=== PATIENT | female | born 1940 | race African-American/Black ===

== ENCOUNTER 2021-05-23 19:11 | Emergency (ER) | payer MEDICARE ==
[~2021-05-23] VITALS: Ht 157.5 cm; Wt 56.2 kg
== END 2021-05-23 22:24 | disposition home or self-care (01) ==
LOC: ER 19:23
DX: Z43.1 Encounter for attention to gastrostomy (principal); F03.90 Unspecified dementia, unspecified severity, without behavioral disturbance, psychotic disturbance, mood disturbance, and anxiety; I10 Essential (primary) hypertension; E46 Unspecified protein-calorie malnutrition

== ENCOUNTER 2021-06-12 11:19 | Emergency (ER) | payer MEDICARE ==
[~2021-06-12] VITALS: Ht 157.5 cm; Wt 56.2 kg
[2021-06-12] MEDS ORDERED: SODIUM CHLORIDE 0.9% 500ML 500 ML IV ONE (11:45)
[2021-06-12 11:59] LABS: BASOPHILS # (AUTO) 0.1 (0.0-0.1); BASOPHILS % 1.1 % (0.0-1.0); EOSINOPHILS % 0.7 % (0.0-6.0); HEMOGLOBIN 11.8 g/dL (12.0-16.0); LYMPHOCYTES # (AUTO) 1.4 (1.0-3.2); LYMPHOCYTES % 24.1 % (18.0-39.1); MEAN CORPUSCULAR HEMOGLOBIN 26.6 pg (28-32); MEAN CORPUSCULAR HGB CONC 30.3 g/dL (31-35); MEAN CORPUSCULAR VOLUME 87.8 fL (81-99); MONOCYTES # (AUTO) 0.5 (0.2-0.8); NEUTROPHILS # (AUTO) 3.7 (2.1-6.9); NEUTROPHILS % 65.6 % (38.7-80.0); PLATELET COUNT 211 x10e3/uL (140-360); RED BLOOD COUNT 4.44 x10e6/uL (3.6-5.1); RED CELL DISTRIBUTION WIDTH 15.8 % (11.7-14.4)
[2021-06-12 12:12] LABS: CLARITY,URINE CLOUDY (CLEAR); COLOR,URINE YELLOW (YELLOW); KETONES,URINE NEGATIVE (NEGATIVE); LEUKOCYTE ESTERASE ,URINE TRACE (NEGATIVE); NITRITE,URINE NEGATIVE (NEGATIVE); PROTEIN,URINE DIPSTICK NEGATIVE (NEGATIVE); URINE UROBILINOGEN 0.2 mg/dL (0.2 - 1)
[2021-06-12 12:14] LABS: BACTERIA,URINE MANY /HPF; EPITHELIAL CELLS,URINE MODERATE /LPF
[2021-06-12 12:15] LABS: AMORPHOUS SEDIMENT,URINE MANY (FEW); WBC,URINE (MAN) 21-50 /HPF (0-5)
[2021-06-12] MEDS ORDERED: ONDANSETRON HCL INJ 2MG/ML 2ML 2 MG/ML VIAL IV ONE (12:30)
[2021-06-12 13:23] LABS: INR 0.9; PROTHROMBIN TIME 12.9 seconds (11.9-14.5)
[2021-06-12 13:24] LABS: PARTIAL THROMBOPLASTIN TIME 24.1 seconds (23.8-35.5)
[2021-06-12 13:59] LABS: ALBUMIN 3.3 g/dL (3.5-5.0); ALBUMIN/GLOBULIN RATIO 1.3 (0.8-2.0); ANION GAP 15.2 mmol/L (8-16); CREATININE, SERUM 0.84 mg/dL (0.57-1.11); MAGNESIUM 1.9 MG/DL (1.3-2.1); POTASSIUM 4.2 mmol/L (3.5-5.1)
[2021-06-12 14:11] LABS: CREATINE KINASE MB 1.2 ng/mL (0-5.0)
[2021-06-12] MEDS ORDERED: IOPAMIDOL 370 MG/ML 200 ML INFUS..BTL INJ ONE (14:43)
[2021-06-12] MEDS ORDERED: SODIUM CHLORIDE 0.9% 50ML 50 ML ONE (14:43)
[2021-06-12] MEDS ORDERED: LIDOCAINE HCL 1% 2 ML AMP ONE (15:32)
[2021-06-12] MEDS ORDERED: CEFTRIAXONE 1 GM VIAL IM ONE (16:00)
== END 2021-06-12 16:19 | disposition home or self-care (01) ==
LOC: ER 11:23
DX: N39.0 Urinary tract infection, site not specified (principal); K59.00 Constipation, unspecified; I10 Essential (primary) hypertension; Z20.822 Contact with and (suspected) exposure to COVID-19
CPT/HCPCS: 36415; 71045; 74176; 80053; 81001; 82550; 82553; 83690; 83735; 84484; 85025; 85610; 85730; 87086; 93005; 99284; C9113; J0696; J2001; J2405; J7040; U0002; Q9967

== ENCOUNTER 2021-07-21 13:54 | Emergency (ER) | payer MEDICARE ==
[~2021-07-21] VITALS: Ht 157.5 cm; Wt 56.2 kg
[2021-07-21 16:00] LABS: CLARITY,URINE SL CLOUDY (CLEAR); COLOR,URINE YELLOW (YELLOW); KETONES,URINE NEGATIVE (NEGATIVE); LEUKOCYTE ESTERASE ,URINE TRACE (NEGATIVE); NITRITE,URINE NEGATIVE (NEGATIVE); PROTEIN,URINE DIPSTICK NEGATIVE (NEGATIVE); URINE UROBILINOGEN 0.2 mg/dL (0.2 - 1)
[2021-07-21 16:07] LABS: AMORPHOUS SEDIMENT,URINE FEW (FEW); BACTERIA,URINE FEW /HPF; MUCUS,URINE MODERATE (RARE); RBC,URINE 0-5 /HPF (0-5)
[2021-07-21] MEDS ORDERED: KEFLEX125 MG/5 M PO (17:31)
== END 2021-07-21 19:59 | disposition home or self-care (01) ==
LOC: ER 16:29
DX: F03.90 Unspecified dementia, unspecified severity, without behavioral disturbance, psychotic disturbance, mood disturbance, and anxiety (principal); R82.71 Bacteriuria; I10 Essential (primary) hypertension; Z93.1 Gastrostomy status
CPT/HCPCS: 74018; 81001; 99283